=== PATIENT | male | born 1970 | race Caucasian/White ===

== ENCOUNTER 2017-09-21 11:38 | Emergency (ER) | payer SELFPAY ==
[2017-09-21 11:44] VITALS: TEMP 98.2
[2017-09-21] MEDS ORDERED: ONDANSETRON 4 MG/2 ML VIAL IVP ONE ×2 (12:07→13:26)
[2017-09-21] MEDS ORDERED: NS 1,000 ML IV ONE ×2 (12:10→12:50)
--- NOTE | 2017-09-21 12:55 | EDPHY ---
HPI/HX/ROS/PE/MDM Narrative: CHIEF COMPLAINT: Nausea, vomiting, abdominal pain HPI: The patient is a 47 y/o male with a history of prior pancreatitis complaining of nausea, vomiting, and abdominal pain, onset 6 days ago. On Friday, he believes he ate some food that gave him food poisoning as he started throwing up that night. His symptoms improved for several days, but last night they worsened again. He has also had difficulty making a bowel movement since his symptoms began. Currently, he is still nauseous. He believes his previous pancreatitis was due to alcohol, which he last drank 14 years ago. No blood in stool or vomit. No history of abdominal surgery. No fever, chills, chest pain, numbness, paresthesias, headache. REVIEW OF SYSTEMS: Aside from elements discussed in the HPI, a comprehensive 10-point review of systems was reviewed and is negative. PMH: Pancreatitis SOCIAL HISTORY: Friend at bedside, lives in [facility] PHYSICAL EXAM: General: Patient is alert, in no acute distress. ENT: Eyes are normal to inspection. ENT inspection normal. Neck: Normal inspection. Full range of motion. Respiratory: No respiratory distress. Breath sounds normal bilaterally. Cardiovascular: Regular rate and rhythm. Strong peripheral pulses. Normal cap refill. Abdomen: The abdomen is nontender to palpation. There are no peritoneal signs. There are normal bowel sounds. Back: Normal to inspection. No tenderness to palpation. Skin: Normal color. No rash. Warm and dry. Extremities: Normal appearance. Full range of motion. Neuro: Oriented x3. Normal motor function. Normal sensory function. ED Course: 1251: Additional 1L IV NS and 4mg IV Zofran administered. Blood work still pending. 1336: Patient is complaining of abdominal pain, 15mg IV Toradol administered. 1438: I reviewed patient's abdominopelvic CT. Mild ileitis present. No appendicitis or other surgical pathology per Dr. Díaz. 12.5mg IV Phenergan administered as patient is still nauseous and in pain. 1515: Patient awake from nap, states symptoms largely resolved. We discussed workup and possibility of stool sample but patient states he is unable to provide one. He would like to be discharged. We discussed strict return precautions. MDM: This patient presents with several days of diffuse abdominal pain and vomiting. He was rehydrated here in the ED and labs are essentially normal, with no signs of pancreatitis. CTAP was performed and is positive only for a short segment of ileitis. On re-evaluation, patient feels back to normal and his abdomen is benign. The etiology of his ileitis is unknown but given improvement in symptoms I think he is appropriate for referral to GI and further outpatient workup. He is comfortable with this plan. I see no signs of appendicitis, diverticulitis, bowel obstruction, severe sepsis or trauma. - Data Points Imaging Results: Imaging Impressions Abdomen CT 09/21/17 13:22 Impression: 1. Short segment of mild ileitis. Etiologies includes infectious and inflammatory etiologies such as Crohn's disease. 2. No bowel obstruction, free fluid, or abscess. 3. Normal appendix. 4. Normal pancreas. No evidence of acute or chronic pancreatitis. Findings discussed with emergency department physician, Pranav Live MD on September 21, 2017 at 3:18 p.m. Imaging: I viewed and interpreted images myself Laboratory Results: Laboratory Results 09/21/17 11:55 09/21/17 11:55 09/21/17 09/21/17 09/21/17 11:55 11:55 11:55 WBC 8.84 10^3/uL 10^3/uL (3.80-9.50) RBC 5.14 10^6/uL 10^6/uL (4.40-6.38) Hgb 15.9 g/dL g/dL (13.7-17.5) Hct 44.5 % % (40.0-51.0) MCV 86.6 fL fL (81.5-99.8) MCH 30.9 pg pg (27.9-34.1) MCHC 35.7 g/dL g/dL (32.4-36.7) RDW 11.9 % % (11.5-15.2) Plt Count 256 10^3/uL 10^3/uL (150-400) MPV 10.1 fL fL (8.7-11.7) Neut % (Auto) 76.7 % H % (39.3-74.2) Lymph % (Auto) 13.7 % L % (15.0-45.0) [place] % (Auto) 8.3 % % (4.5-13.0) Eos % (Auto) 0.3 % L % (0.6-7.6) Baso % (Auto) 0.7 % % (0.3-1.7) Nucleat RBC Rel Count 0.0 % % (0.0-0.2) Absolute Neuts (auto) 6.78 10^3/uL H 10^3/uL (1.70-6.50) Absolute Lymphs (auto) 1.21 10^3/uL 10^3/uL (1.00-3.00) Absolute Monos (auto) 0.73 10^3/uL 10^3/uL (0.30-0.80) Absolute Eos (auto) 0.03 10^3/uL 10^3/uL (0.03-0.40) Absolute Basos (auto) 0.06 10^3/uL 10^3/uL (0.02-0.10) Absolute Nucleated RBC 0.00 10^3/uL 10^3/uL (0-0.01) Immature Gran % 0.3 % % (0.0-1.1) Immature Gran # 0.03 10^3/uL 10^3/uL (0.00-0.10) Sodium 140 mEq/L mEq/L (135-145) Potassium 3.7 mEq/L mEq/L (3.5-5.2) Chloride 99 mEq/L mEq/L (97-110) Carbon Dioxide 26 mEq/l mEq/l (22-31) Anion Gap 15 mEq/L mEq/L (8-16) BUN 13 mg/dL mg/dL (7-23) Creatinine 0.7 mg/dL mg/dL (0.7-1.3) Estimated GFR > 60 Glucose 108 mg/dL H mg/dL (70-100) Calcium 9.4 mg/dL mg/dL (8.5-10.4) Total Bilirubin 1.2 mg/dL mg/dL (0.1-1.4) Conjugated Bilirubin 0.4 mg/dL mg/dL (0.0-0.5) Unconjugated Bilirubin 0.8 mg/dL mg/dL (0.0-1.1) AST 20 IU/L IU/L (17-59) ALT 35 IU/L IU/L (21-72) Alkaline Phosphatase 69 IU/L IU/L (38-126) Total Protein 7.2 g/dL g/dL (6.3-8.2) Albumin 4.6 g/dL g/dL (3.5-5.0) Lipase 31 IU/L IU/L (23-300) Medications Given: Discontinued Medications Sodium Chloride (Ns) 1,000 mls @ 0 mls/hr IV ONCE ONE PRN Reason: Wide Open Stop: 09/21/17 12:11 Last Admin: 09/21/17 12:11 Dose: 1,000 mls Sodium Chloride (Ns) 1,000 mls @ 0 mls/hr IV ONCE ONE PRN Reason: Wide Open Stop: 09/21/17 12:51 Last Admin: 09/21/17 13:06 Dose: 1,000 mls Ketorolac Tromethamine (Toradol) 15 mg IVP EDNOW ONE Stop: 09/21/17 13:37 Last Admin: 09/21/17 13:38 Dose: 15 mg Ondansetron HCl (Zofran) 4 mg IVP EDNOW ONE Stop: 09/21/17 12:08 Last Admin: 09/21/17 12:10 Dose: 4 mg Ondansetron HCl (Zofran) 4 mg IVP EDNOW ONE Stop: 09/21/17 13:27 Last Admin: 09/21/17 13:32 Dose: 4 mg Promethazine HCl (Phenergan) 12.5 mg IVP ONCE ONE Stop: 09/21/17 14:37 Last Admin: 09/21/17 14:39 Dose: 12.5 mg General Time Seen by Provider: 09/21/17 12:54 Initial Vital Signs: Initial Vital Signs Temperature (C) 36.8 C 09/21/17 11:41 Respiratory Rate 18 09/21/17 11:41 Blood Pressure 146/105 H 09/21/17 11:41 O2 Sat (%) 99 09/21/17 11:41 O2 Delivery Mode Room Air Allergies/Adverse Reactions: No Known Allergies Allergy (Verified 09/21/17 11:40) Home Medications: Medication Instructions Recorded Ondansetron Odt [Zofran Odt] 4 mg PO Q4PRN PRN #10 tab 09/21/17 Departure - Departure Disposition: Home, Routine, Self-Care Clinical Impression: Ileitis Condition: Good Instructions: Acute Abdominal Pain (ED) Additional Instructions: Follow-up with your primary doctor within 72 hours. Return to the Emergency Department for worsening pain, fever, severe vomiting, change in character or severity of pain or other worsening of condition. Referrals: [facility],. [Clinic] - As per Instructions Prescriptions: Ondansetron Odt [Zofran Odt] 4 mg PO Q4PRN PRN #10 tab PRN Reason: Nausea Report Scribed for: Pranav Live Report Scribed by: Fern Castillo Date of Report: 09/21/17 Time of Report: 12:55 Physician Review and Approval Statement: Portions of this note were transcribed by an ED scribe. I personally performed the history, physical exam, and medical decision making; and confirm the accuracy of the information in the transcribed note.
[2017-09-21 12:59] LABS: PLATELET COUNT 256 10^3/uL (150-400)
[2017-09-21 13:35] VITALS: RESP 17
[2017-09-21] MEDS ORDERED: KETOROLAC 15 MG/1 ML SDV ONE (13:36)
[2017-09-21] MEDS ORDERED: KETOROLAC 30 MG/1 ML SDV IVP ONE (13:36)
[2017-09-21] MEDS ORDERED: IOPAMIDOL (ISOVUE-300) 100 ML BTL ONE (14:04)
[2017-09-21] MEDS ORDERED: PROMETHAZINE HCL 25 MG/ML INJ IVP ONE (14:36)
[2017-09-21] MEDS ORDERED: PROMETHAZINE HCL 25 MG/ML INJ ONE (14:37)
[2017-09-21 15:59] VITALS: BP 117/74; PULSE 80; O2SAT 97
== END 2017-09-21 16:02 | disposition home or self-care (01) ==
DX: K52.9 Noninfective gastroenteritis and colitis, unspecified (principal)
CPT/HCPCS: 96374; J1885; J2405; J2550; Q9967